=== PATIENT | male | born 1945 | race Caucasian/White ===

== ENCOUNTER 2018-12-02 13:06 | Emergency (ER) | payer MEDICARE, MEDICAID ==
[~2018-12-02] VITALS: Ht 175.3 cm; Wt 56.7 kg
[2018-12-02] MEDS ORDERED: POTA10CA43 PO (13:25)
[2018-12-02] MEDS ORDERED: BISA10SU61 RC (13:25)
[2018-12-02] MEDS ORDERED: VALB40CA PO (13:25)
[2018-12-02] MEDS ORDERED: [UNRECOGNIZED DRUG - CODE] PO (13:25)
[2018-12-02] MEDS ORDERED: SODI1TAB3 PO (13:25)
[2018-12-02] MEDS ORDERED: HALO5TAB PO (13:25)
[2018-12-02] MEDS ORDERED: CRAN450C PO (13:25)
[2018-12-02] MEDS ORDERED: DIVA250T PO (13:25)
[2018-12-02] MEDS ORDERED: BENZ1TAB7 PO (13:25)
[2018-12-02] MEDS ORDERED: MIDO5TAB5 PO (13:25)
[2018-12-02] MEDS ORDERED: MAGN400O6 PO (13:25)
[2018-12-02] MEDS ORDERED: LEVO112T2 PO (13:25)
[2018-12-02] MEDS ORDERED: ACET-2154 PO (13:25)
[2018-12-02] MEDS ORDERED: DIVA500T4 PO (13:25)
[2018-12-02] MEDS ORDERED: DOCU-141 PO (13:25)
[2018-12-02] MEDS ORDERED: PANT40TA4 PO (13:25)
[2018-12-02] MEDS ORDERED: MELA3TAB63 PO (13:25)
[2018-12-02] MEDS ORDERED: TRAM50TA2 PO (13:25)
[2018-12-02 13:33] LABS: BASOPHILS % (AUTO) 0.8 % (0.0-2.0); EOSINOPHILS % (AUTO) 6.1 % (0.0-7.0); HEMATOCRIT 38.7 % (36.7-47.1); HEMOGLOBIN 12.9 g/dL (12.5-16.3); LYMPHOCYTES % (AUTO) 15.7 % (20.5-51.5); MEAN CORPUSCULAR HEMOGLOBIN 30.9 uug (23.8-33.4); MEAN CORPUSCULAR HGB CONC 33 g/dL (32.5-36.3); MONOCYTES % (AUTO) 12.1 % (0.0-11.0); NEUTROPHILS % (AUTO) 65.3 % (38.5-71.5); PLATELET COUNT (AUTO) 303 K/uL (152-348); RED BLOOD CELL COUNT(AUTO) 4.16 MIL/uL (4.06-5.63); WHITE BLOOD COUNT (AUTO) 9.2 K/uL (3.6-10.2)
[2018-12-02 13:34] LABS: BASOPHILS # (AUTO) 0.1 K/uL (0.0-8.0); EOSINOPHILS # (AUTO) 0.6 K/uL (0.0-0.7); LYMPHOCYTES # (AUTO) 1.4 K/uL (20.0-40.0); MONOCYTES # (AUTO) 1.1 K/uL (2.0-10.0)
[2018-12-02 13:37] LABS: CARBON DIOXIDE 25 mmol/L (21-32); CHLORIDE 103 mmol/L (98-107); CREATININE 0.9 mg/dL (0.6-1.3); GLUCOSE 96 mg/dL (74-106); POTASSIUM 4.5 mmol/L (3.5-5.1); UREA NITROGEN, BLOOD 16 mg/dL (7-18)
[2018-12-02 13:42] LABS: ALANINE AMINOTRANSFERASE 30 U/L (16-63); ALKALINE PHOSPHATASE 90 U/L (50-136); ASPARTATE AMINOTRANSFERASE 21 U/L (15-37); BILIRUBIN,DIRECT 0.1 mg/dL (0.0-0.2); BILIRUBIN,TOTAL 0.1 mg/dL (0.2-1.0)
[2018-12-02 13:43] LABS: ACETAMINOPHEN < 2.0 ug/mL (10-30)
[2018-12-02 13:44] LABS: ETHANOL < 3 MG/DL (0-0)
--- NOTE | 2018-12-02 13:51 | NUR ---
CALLED [facility] AND LEFT A MESSAGE FOR PSYCH EVAL
--- NOTE | 2018-12-02 17:21 | NUR ---
hospital dinner provided for pt. pt eating with good apetite.
--- NOTE | 2018-12-02 17:54 | NUR ---
pt requested to go to bathroom, bedside commode provided. pt ad large soft bm.
--- NOTE | 2018-12-02 18:00 | NUR ---
called [facility] to transfer the pt. eta [id number] trip number [id number].
--- NOTE | 2018-12-02 21:34 | NUR ---
Patient discharged to home in stable conditon. Written and verbal after care instructions given. Patient verbalizes understanding of instructions. Ambulance here for patient transport. Patient in stable condition.
--- NOTE | 2018-12-02 21:34 | NUR ---
Report given to Ashlee at [facility].
[2018-12-02 21:46] VITALS: BP 121/79
== END 2018-12-02 21:47 ==
LOC: ER 13:06
DX: Z04.6 Encounter for general psychiatric examination, requested by authority (principal); K21.9 Gastro-esophageal reflux disease without esophagitis; F32.9 Major depressive disorder, single episode, unspecified; F20.9 Schizophrenia, unspecified; F41.9 Anxiety disorder, unspecified; E03.9 Hypothyroidism, unspecified; Z79.899 Other long term (current) drug therapy
CPT/HCPCS: 36415; 80048; 80076; 85025; 93005; 99285; G0480 ×2; G0481; A4663